=== PATIENT | female | born 1960 | race Caucasian/White ===

== ENCOUNTER 2018-07-19 07:21 | Day surgery (SDC) | payer BC ==
[~2018-07-19] VITALS: Ht 162.6 cm; Wt 116.0 kg
[~2018-07-19 07:21] MED LIST: ASPI81CH PO; Aldactone25 MG PO; BP MED; COQ1050 MG PO; ESTROGEN; HYDACE5; LISI20 PO; ONDA8ODT MM; PROM25 PO; ROSU10TA; THERA1 EACH PO; VITAMIN D-32000 UNIT PO; Vitamin B Comple1 EA PO; ZOLP10 PO; Zocor20 MG PO
--- NOTE | 2018-07-19 07:36 | NUR ---
Ambulatory in Day Surgery History, Chart, Medications and Allergies reviewed before start of procedure.Lungs clear T/O to Auscultation. Patient States Post-Procedure ride home has been arranged. Patient confirms NPO status and agrees with scheduled surgery.
--- NOTE | 2018-07-19 07:41 | NUR ---
PATIENT GAVE PERMISSION FOR ME TO CARE FOR HER TODAY 07/19/18
--- NOTE | 2018-07-19 10:18 | NUR ---
Discharged via wheelchair to private car for ride home.
--- NOTE | 2018-07-19 10:18 | NUR ---
LATE ENTRY- 1000- Discharge instructions reviewed with patient. Patient verbalizes understanding. Copy given to patient to take home.
== END 2018-07-19 23:26 | disposition home or self-care (01) ==
LOC: ORSCMMR 07:21 → ORD 08:45 → ORSCMMR 08:45
PROVIDERS: Surgery
PROC: 0DBN8ZX Excision of Sigmoid Colon, Via Natural or Artificial Opening Endoscopic, Diagnostic (ICD-10-PCS; principal; 2018-07-19 08:45)
PROC: 0DBP8ZX Excision of Rectum, Via Natural or Artificial Opening Endoscopic, Diagnostic (ICD-10-PCS; principal; 2018-07-19 08:45)
PROC: 0DBM8ZX Excision of Descending Colon, Via Natural or Artificial Opening Endoscopic, Diagnostic (ICD-10-PCS; principal; 2018-07-19 08:45)
DX: Z12.11 Encounter for screening for malignant neoplasm of colon (principal); Z86.010 Personal history of colon polyps; D12.4 Benign neoplasm of descending colon; K63.5 Polyp of colon; K62.1 Rectal polyp; K57.30 Diverticulosis of large intestine without perforation or abscess without bleeding; I10 Essential (primary) hypertension; G47.33 Obstructive sleep apnea (adult) (pediatric); F17.210 Nicotine dependence, cigarettes, uncomplicated; E66.01 Morbid (severe) obesity due to excess calories; Z68.41 Body mass index [BMI] 40.0-44.9, adult; Z79.899 Other long term (current) drug therapy; Z79.82 Long term (current) use of aspirin
CPT/HCPCS: 88305; J2250; J2704; J7120

== ENCOUNTER → 2018-08-15 | Outpatient (CLI) | payer BC | END | disposition home or self-care (01) | LOC: LAB SHORT 17:34 → LAB 17:34 | DX: N39.0 Urinary tract infection, site not specified (principal) | CPT/HCPCS: 87077; 87086; 87186 ==

== ENCOUNTER → 2018-09-24 | Outpatient (CLI) | payer BC | END | disposition home or self-care (01) | LOC: PLD 07:55 → LAB SHORT 07:55 | DX: D22.62 Melanocytic nevi of left upper limb, including shoulder (principal) | CPT/HCPCS: 88305; 88312 ==

== ENCOUNTER → 2022-10-23 | Outpatient (CLI) | payer OTHER | LOC: PLD 08:24 → LAB SHORT 08:24 | DX: D48.5 Neoplasm of uncertain behavior of skin (principal) | CPT/HCPCS: 88305 ==